=== PATIENT | male | born 1990 | race Caucasian/White ===

== ENCOUNTER 2018-08-06 14:36 | Day surgery (SDC) | payer BC ==
[2018-08-06] MEDS ORDERED: LIDOCAINE 4% SOLUTION 50 ML BTL (14:53)
[2018-08-06] MEDS ORDERED: FENTAnyl 50 MCG/ML VIAL (15:58)
[2018-08-06] MEDS ORDERED: MIDAZOLAM 1 MG/ML 2 ML INJ ×2 (15:58)
== END 2018-08-06 16:14 | disposition home or self-care (01) ==
LOC: GIL 14:36
DX: K44.9 Diaphragmatic hernia without obstruction or gangrene (principal); K21.0 Gastro-esophageal reflux disease with esophagitis
CPT/HCPCS: 43239; 88305; 88312; 88313